=== PATIENT | male | born 1950 | race Caucasian/White ===

== ENCOUNTER → 2021-05-15 | Outpatient (CLI) | payer MEDICARE ==
[~2021-05-15] MED LIST: NKHM
[2021-05-17 02:06] LABS: ANTI-THROMBIN III ACTIVITY 142 % (75-135); PROTEIN S, FREE 128 % (57-157); PROTEIN S, TOTAL 84 % (60-150)
[2021-05-17 03:06] LABS: PTT-LA 53.3 sec (0.0-51.9)
[2021-05-17 08:08] LABS: DVVTMIXRFX CHG; LUPUS DRVVT 136.3 sec (0.0-47.0); PTT-LA MIX 47.5 sec (0.0-48.9)
[2021-05-17 14:08] LABS: HEXAGONAL PHASE PHOSPHOLIPID 0 sec (0-11)
[2021-05-17 15:07] LABS: LUPUS REFLEX INTERPRETATION Comment: (.)
== END | disposition home or self-care (01) ==
LOC: LAB 07:18
PROVIDERS: ATTEND Physician Assistant Medical
DX: I82.492 Acute embolism and thrombosis of other specified deep vein of left lower extremity (principal); G47.62 Sleep related leg cramps